=== PATIENT | female | born 1960 | race Caucasian/White ===

== ENCOUNTER 2023-10-07 13:51 | Outpatient (REF) | payer BC, SELFPAY ==
--- NOTE | ~2023-10-07 | XR_ITS ---
EXAMINATION: XR LUMBOSACRAL SPINE CLINICAL INFORMATION: Lumbar radiculopathy. COMPARISON: None available. TECHNIQUE: 4 views of the lumbar spine, inclusive of flexion and extension views, were obtained. FINDINGS: There is bony demineralization. At L2-3 and L3-4, there is mild posterior disc space narrowing. At L4-5, there has been a prior posterior fusion and discectomy, with intact posterior fixator rods, pedicular screws and disc spacer. Alignment is well maintained at this level. At L5-S1, there is a 6 mm anterolisthesis. No acute fracture or spondylolisthesis is seen. There is no instability with flexion or extension. There is multi-level thoracolumbar endplate arthropathy. There is facet arthropathy at L5-S1. There are aortoiliac atherosclerotic calcifications. XR/XR lumbar spine 4V min IMPRESSION: 1. There is well-maintained alignment status post L4-5 posterior fusion and discectomy. No hardware failure or loosening is seen. There is no instability with flexion or extension. 2. There is mild degenerative disc disease at L2-3 and L3-4, and moderate degenerative disc disease is seen at L5-S1. Electronically signed by: Naga Perrin MD 10/28/2023 07:09 PM EDT RP
== END 2023-10-07 13:52 | disposition home or self-care (01) ==
LOC: HO.HOSX 13:51
PROVIDERS: PCP Internal Medicine; Visit Provider Physician Assistant
DX: M54.16 Radiculopathy, lumbar region (principal)
CPT/HCPCS: 72110

== ENCOUNTER 2023-10-07 13:51 | Outpatient (AMB) | payer BC, SELFPAY ==
--- NOTE | 2023-10-07 13:09 | HO.SPINEOV ---
Vital Signs 10/07/23 14:14 Height 5 ft 6 in Weight 175 lb BMI 28.2 Intake Visit Reasons: spinal fusion/ back pain Intake Note: Ms. Treadwell is here today c/o Left sided back pain Radiating down leg with numbness. 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 She recently had a L4-5 lumbar fusion surgery completed by [facility] (Dr. Zabala) on July 14 in 2023. She states that she had this surgery due to her significant low back pain. She did report temporary resolution of her back pain, however 2 months after her surgery in early September she awoke with severe low back pain and shooting pains into her left lower extremity. When describing her radiculopathy she runs her left hand over her left posterior buttocks, over her left anterior thigh, over the left knee, down the left anterior tibialis, to the top of her left foot. She denies any numbness/tingling/burning. She denies any inciting incident. She has attempted physical therapy but could not complete it due to her severe pain. She has tried taking Tylenol, ibuprofen, [id number]-hxzzubk pain patches/creams, and hydrocodone with only minimal relief of symptoms. PMH: L4-5 lumbar fusion completed by [facility] in July of this year. History of bilateral carpal tunnel release. Left shoulder repair in 2021, left-sided trimalleolar fracture in 2019 ([facility]). Asthma, high blood pressure, hyperlipidemia, anxiety, vitamin-C/D deficiency. Depression. Social hx: Patient smokes 1/2 ppd, drinks alcohol recreationally every other day. Medications: Lipitor, Spiriva, albuterol, vitamin-D, trazodone, Ativan, amlodipine, vitamin-C, vitamin-D, aspirin, sertraline, gabapentin, tizanidine, meclizine. Allergies: Lisinopril. Physical exam: The patient has 5/5 strength in her upper and lower extremities, however she does elicit pain to left-sided iliopsoas testing. She ambulates with a antalgic gait favoring the right side. She declines any sensational deficits. Her reflexes are 2+ intact. (-) bilateral straight leg raise, (-) clonus, (-) Duong's. Evidence of 3 surgical site incisions on inspection of lumbar spine, 1 old midline incision likely from lumbar decompression, 2 new lateral incisions likely from recent fusion. Imaging review: MRI of the lumbar spine completed in June of this year at [facility] shows evidence of a prior lumbar decompression at L2-3. There is some loss of disc height at L2-3, and some posterior disc bulging seen at L2-3, L3-4, and L4-5. Given this, the central canal is for the most part patent with minimal evidence of central canal stenosis at these levels. Additionally, there is mild-moderate stenosis from L2-5 in the bilateral foramen, slightly worse on the right. Impression: Joelle is a pleasant 63-year-old female who comes in today with a chief complaint of low back pain with shooting pains into her left lower extremity. She states that this has been ongoing since early September, in his causing her severe distress. She rates her current pain as 10/10, and denies any inciting incident. The dermatomal distribution that she describes is classic for an L4-5 nerve impingement on the left. I obtain x-ray imaging in office today during her visit which showed stable placement of her surgical instrumentation as far as I am able to tell. I believe that her reported history and examination are concerning enough for an acute disc herniation. I would like to have the patient sent for a MRI of her lumbar spine, and will follow up with her after. Thank you for allowing us to care for your patient. The total time spent with this visit with this patient was 45 minutes reviewing history, physical exam, MRI imaging review, and implementation of treatment plan or further diagnostic testing Jay Guadarrama MD,PhD [facility] Orders: Orders MR lumbar spine wo con Today M54.16 - Radiculopathy, lumbar region XR lumbar spine 4V min Today M54.16 - Radiculopathy, lumbar region Coding Level of Care Code New Pt Level 4 (34810) Diagnoses Lumbar radiculopathy M54.16
[2023-10-07 14:14] VITALS: BMI 28.2
== END 2023-10-07 15:03 | disposition home or self-care (01) ==
PROVIDERS: PCP Internal Medicine; Visit Provider Physician Assistant
DX: M54.16 Radiculopathy, lumbar region (principal)
CPT/HCPCS: 99204

== ENCOUNTER → 2023-11-10 14:41 | Outpatient (BNV) | payer BC, SELFPAY | PROVIDERS: PCP Internal Medicine; Visit Provider Radiology Diagnostic Radiology | DX: M54.16 Radiculopathy, lumbar region (principal) | CPT/HCPCS: 72148 ==

== ENCOUNTER 2023-11-10 14:46 | Outpatient (REF) | payer BC, SELFPAY ==
--- NOTE | ~2023-11-10 | MR_ITS ---
EXAMINATION: MR LUMBAR SPINE WITHOUT CONTRAST CLINICAL INFORMATION: Radiculopathy lumbar region. Left lower extremity radicular symptoms COMPARISON: No prior MR. Plain films lumbar spine 10/07/2023. TECHNIQUE: Multiplanar multisequence MR imaging of the lumbar spine was done without IV contrast. Examination performed on a 1.5 Patricia Siemens magnet. Standard sequences were utilized. FINDINGS: CORONAL ALIGNMENT: -Normal. SAGITTAL ALIGNMENT: -Normal lordosis. -2 mm degenerative retrolisthesis T12 on L1. -3 mm degenerative retrolisthesis L2 on L3. -4 mm degenerative anterolisthesis L5 on S1. LUMBOSACRAL JUNCTION: -Normal. There are 5 [id number] lumbar-type vertebral bodies. VERTEBRAL BODIES/BONE MARROW: -Posterior fusion construct L4-L5 with transpedicular screws and posterior connecting rods. Metallic hardware generates localized susceptibility artifact. -Disc prosthesis in the right aspect of L4-5. -There are no compression deformities. -Minimal ventral edematous type endplate changes at T12-L1. -Mild posterior edematous endplate changes at L2-L3. -Prominent Schmorl's node in the inferior endplate of L2. -Susceptibility artifact at L4 and L5. DISCS: -Mild loss of disc height and signal L5-S1 as well as T11-T12 and T12-L1. -Moderate loss of disc height and signal L2-3, L3-4. -There is a disc prosthesis in the right aspect of L4-5. There is associated surrounding susceptibility artifact. SPINAL CANAL: -There is congenital spinal narrowing at L3-4 spanning L4-5 due to dorsal epidural lipomatosis. CONUS MEDULLARIS: -Terminates at inferior endplate L1.. Morphology and signal is normal. INTRADURAL NERVE ROOTS: -Within normal limits without clumping or abnormal mass. Axial Disc Space Images: T12-L1: Only seen on the axial T1, and sagittal sequences, there is a shallow diffuse bulging disc extending into the lateral zones bilaterally. Facets are normal. No central canal narrowing, subarticular recess narrowing, or neural foraminal narrowing. L1-L2: There is a shallow concentric disc bulge present with a superimposed right paracentral protrusion of disc material and annular fissuring. This indents upon the ventral thecal sac but does not contact the nerve roots. Facets appear normal. There is mild central canal narrowing. No lateral recess or neural foraminal narrowing. L2-L3: There is a subtle degenerative retrolisthesis with moderate disc degeneration. There has been a prior right hemilaminotomy. -There is a diffuse concentric disc bulge present extending to right greater than left foraminal zones. There is a superimposed right far lateral and foraminal extrusion of disc material with mild inferior migration and prominent annular fissure. This measures an estimated 5 mm in AP, by 12 mm in transverse, by 11 mm in craniocaudad dimension. There is mass effect and compression of the traversing L3 nerve roots on the right. -The central canal is only mildly narrowed. There is severe right subarticular recess stenosis. There is mild left subarticular recess stenosis. There is moderate to severe right neural foraminal narrowing with contact of the exiting right L2 root. There is mild left neural foraminal narrowing. L3-L4: There is a diffuse shallow extrusion of disc material extending into both foraminal zones, with a superimposed focal right foraminal small extrusion with mild annular fissuring. There are mild hypertrophic degenerative facet changes although partially obscured by susceptibility artifact. There is posterior ligamentous thickening/infolding and dorsal epidural lipomatosis. There is lateral recess lipomatosis as well. Combination of findings is resulting in moderate central canal stenosis with central nerve root crowding, crowding of both subarticular recesses without definite nerve root impingement, worse on the left. -There is moderate right neural foraminal stenosis with mass effect and deviation of the exiting right L3 root. There is mild to moderate left neural foraminal stenosis with contact but no mass effect upon the exiting left L3 root. L4-L5: Disc prosthesis in the right aspect of the disc space. Dorsal fusion construct. Prominent posterior ligamentous thickening/infolding with mild bilateral facet hypertrophy, partially obscured by susceptibility artifact. -There is a diffuse bulging disc present with narrowing of the right neural foramen, and a superimposed left paracentral, lateral, and foraminal extrusion of disc material, which, when coupled with dorsal and left lateral recess epidural lipomatosis, is resulting in mild central canal stenosis, mild left greater than right subarticular recess stenosis without definite impingement of the traversing L5 roots. -There is moderate to severe left neural foraminal stenosis with contact and mass effect upon the exiting left L4 root. There is at least mild right neural foraminal stenosis although definitive quantification is difficult due to susceptibility artifact. L5-S1: Laminectomies bilaterally. Central canal has been decompressed. Mild disc uncovering secondary to anterolisthesis. There has been a probable left foraminotomy and lateral facetectomy. This is difficult to ascertain definitively due to susceptibility artifact from adjacent hardware. No significant ligamentum flavum thickening or infolding. -Advanced bilateral degenerative facet changes. Combination of findings is resulting in mild bilateral neural foraminal stenosis left greater than right. There is no significant central canal or subarticular recess stenosis. IMAGED SI JOINTS: Mild degenerative arthritis bilaterally. PARAVERTEBRAL AND INCLUDED EXTRASPINAL SOFT TISSUES: Mild atrophy of the paraspinous musculature inferior to L5. Aorta is partially obscured by a saturation band but normal in caliber. Bilateral extrarenal pelvini left greater than right. No adenopathy in the retroperitoneum. MR/MR lumbar spine wo con IMPRESSION: 1. Dorsal fusion L4-5 with disc prosthesis in the right aspect of the disc space. Localized susceptibility artifact from metallic hardware. L5-S1 laminectomies. L2-3 right hemilaminotomy. 2. Multilevel lumbar spondylosis as described. This is exacerbated by dorsal and lateral epidural lipomatosis spanning L3-L5. 3. Multilevel disc bulges, with disc extrusion at L2-3 right far lateral and foraminal. This causes mass effect and probable impingement of the traversing right L3 roots. Moderate to severe right neural foraminal narrowing. 4. Diffuse bulging disc at L4-5 with superimposed left paracentral, lateral, and foraminal disc extrusion, which is causing significant left neural foraminal stenosis with contact and mass effect upon the exiting left L4 root. 5. There is no high-grade central canal stenosis. There is moderate central canal stenosis at L3-4 exacerbated by epidural lipomatosis. 6. See above for details and ancillary findings. Electronically signed by: Rafi Koo MD 11/27/2023 04:31 PM EDT
== END 2023-11-10 14:47 | disposition home or self-care (01) ==
LOC: HO.MRI 14:46
PROVIDERS: PCP Internal Medicine; Visit Provider Physician Assistant
DX: M54.16 Radiculopathy, lumbar region (principal)
CPT/HCPCS: 72148